=== PATIENT | female | born 1970 | race Caucasian/White ===

== ENCOUNTER → 2020-07-16 15:42 | Outpatient (CLI) | payer BC, SELFPAY ==
--- NOTE | ~2020-07-16 | MM_ITS ---
EXAMINATION: MM screening leyda BI w rasta HISTORY: Screening mammogram TECHNIQUE: Craniocaudal and mediolateral oblique 3-D tomosynthesis images were obtained and synthetic 2-D images were generated. CAD analysis was submitted and interpreted. COMPARISON: 01/13/2019 and 06/19/2018 diagnostic right digital mammogram 06/13/2018 bilateral digital screening mammogram BREAST PARENCHYMAL COMPOSITION: The breasts are heterogeneously dense, which may obscure small masses . FINDINGS: Minimal benign calcification of the breast. There is no evidence of suspicious mass, calcif ication, or architectural distortion to suggest malignancy in either breast. There has been no suspic ious interval change. IMPRESSION: 1. No mammographic evidence of malignancy. 2. Recommend routine screening mammography in one year. BI-RADS Category 2: Benign finding(s). Reviewed, dictated and finalized at location A.
== END ==
PROVIDERS: PCP Physician Assistant; Visit Provider Obstetrics & Gynecology
DX: Z12.31 Encounter for screening mammogram for malignant neoplasm of breast (principal)
CPT/HCPCS: 77063; 77067

== ENCOUNTER 2024-04-11 15:36 | Outpatient (CLI) | payer BC, SELFPAY ==
--- NOTE | 2024-04-11 | ECG_ITS ---
Test Date: 2024-04-11 16:16:10 Measurements Intervals [place] Rate: 76 P: 45 VT: 168 QRS: 43 QRSD: 78 T: 62 QT: 397 QTc: 447 Interpretive Statements SINUS RHYTHM RSR' IN V1 OR V2, PROBABLY NORMAL VARIANT LOW QRS VOLTAGE IN PRECORDIAL LEADS BORDERLINE ECG No previous ECG available for comparison Electronically Signed On 04-11-2024 17:34:08 CDT by Johnathan Garland D.O.
--- NOTE | ~2024-04-11 | XR_ITS ---
XR chest 2V 04/11/2024 16:12 Indication: History of breast cancer Procedure: 2 view chest Comparison: 06/30/2015 Findings: Heart size normal. Portacatheter tip in the SVC. No focal air space disease, pulmonary delores a, pleural effusion or suspected pneumothorax. Impression: 1: No acute cardiopulmonary disease. Reviewed, dictated and finalized at location B. Impression: 1: No acute cardiopulmonary disease.
== END 2024-04-11 15:37 | disposition home or self-care (01) ==
PROVIDERS: PCP Physician Assistant
DX: N65.0 Deformity of reconstructed breast (principal); Z85.3 Personal history of malignant neoplasm of breast; R94.31 Abnormal electrocardiogram [ECG] [EKG]
CPT/HCPCS: 71046; 93005

== ENCOUNTER 2024-07-25 00:22 | Day surgery (SDC) | payer BC, SELFPAY ==
[2024-07-17 14:59] VITALS: BMI 31.8
--- NOTE | 2024-07-17 15:11 | PC.NURSE ---
Report to the Outpatient Waiting Room, entrance under the green pavilion located off [facility], at time _0630 _ on date 07/25/24_. Planned Procedure Time: 0830_.? Time changes happen often and if your time is changed the preop area will call you the afternoon before. - You and your visitor will be asked to self-screen and do not enter if you have any COVID symptoms. Please call surgeon if you need to reschedule. - A mask is optional within the hospital at this time. Patients may have clear liquids (water, carbonated beverages, clear teas, apple juice) until 8 hours prior to surgery . - No food from midnight until time of surgery and no smoking - Infants may have breast milk until 4 hours before surgery, formula 6 hours prior to surgery. - Children will be allowed to drink immediately following surgery.? If applicable, please bring a bottle or sippy cup to assist with drinking. Juice, water, soda, and popsicles are readily available.? For infants on formula, please bring formula the day of surgery.? Pacifiers are allowed. Take only the following medications with a SIP of water on the morning of surgery: ___ALPRAZOLAM IF NEEDED DO NOT STOP ANY OF YOUR OTHER PRESCRIPTION MEDICATIONS PRIOR TO SURGERY EXCEPT THE FOLLOWING Medications to discontinue per physician VITAMINS AND SUPPLIMENTS Date to take last dose__07/22/24 Please no make-up, nail armenian, hairspray, perfume, deodorant, or body powder the day of surgery.? No jewelry (including any body piercings) or valuables the day of surgery, leave them at home.? Please take a shower or bath the night before, or the morning of, surgery with an antibacterial soap.? Wear comfortable, loose fitting clothing.? Children are encouraged to wear pajamas. - Jewelry must be removed prior to entering the operating room.? Rings and piercings that are not removed may be cut off. - The hospital will not accept responsibility for valuables.? - Please leave all valuables, including medications, at home the day of surgery. If you are going home after surgery, a licensed grab driver must drive you home.? - NO public transportation without another adult if you receive anesthesia. - We recommend that an adult stay with you for 24 hours following discharge. - We also recommend that you do not drive, make important decision, drink alcoholic beverages, or take any drugs that were not prescribed by your health care provider for at least 24 hours after your discharge time. For Pediatric surgeries, we recommend two adults accompany the child home. Follow any additional instructions given to you from your surgeon. Telephone instructions given to PATIENT__and asked if any additional questions and then verbalized understanding. Patient advised to call surgeon office or pre surgery nurse liaison [phone] if any additional questions.
[2024-07-25 06:35] VITALS: BP 112/81; PULSE 99; RESP 20; TEMP 36.1; O2SAT 100
--- NOTE | 2024-07-25 06:56 | P.HP_ITS ---
History of Present Illness History of Present Illness Chief complaint: trigger thumb left hand Narrative: Patient seen and examined in pre-operative holding area. No interval change in medical history or symptoms. Patient recalls previous discussion of benefits and alternatives to procedure. Continues to desire to proceed with left trigger thumb release. Reviewed procedure, post-op expectations and risks including but not limited to bleeding, infection, injury to tendon/nerve/vessel, decreased hand function, stiffness, RSD, no change or worsening of symptoms. I discussed the possible use of assistants and their participation in the case. Patient stated understanding and signed the consent form wishing to proceed. 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 Surgical History Surgical History H/O bilateral mastectomy (~01/2023) H/O breast biopsy (07/30/22) right breast / cancer invasive ductal carcinoma grade 2 History of dilation and curettage (07/20/18) hscope d&c--menometrorrhagia, dysmenorrhea, enlarged uterus--benign History of laparoscopic adjustable gastric banding (05/12/07) History of robot-assisted laparoscopic hysterectomy (09/28/18) RA TLH--symptomatic uterine fibroid Family History Family History Mother Family history of thyroid disease Hypertension Kidney disease Father Acute myocardial infarction Hypertension Grandparent Cerebrovascular accident maternal grandmother Malignant tumor of kidney maternal grandmother Other Breast cancer maternal aunts x2 Sibling Kidney disease brother Social History Social History (Updated 01/10/24 @ 09:14 by Batsheva Mendoza MA) Smoking packs per day: 1 Smoking cigarettes per day: 20.0 Years smoked: 20 Smoking pack-years: 20.00 Smoking status: Former smoker Second hand tobacco smoke exposure: Yes Smoking end date: 09/26/01 Additional smoking assessment comments: LAST USE JUN 2022 Alcohol intake: current Drinks per week: 5 Substance use: never Substance use type: marijuana Other substance usage details: EDIBLES AND MARAJUANA OINT. 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 Gender identity (if verbalized by the patient): Female Sexual Orientation (if Verbalized by the Patient): Straight or Heterosexual Meds Home Medications and Allergies Home Medications Medication Instructions Recorded Confirmed Type alprazolam 0.25 mg tablet 0.25 mg PO DAILY PRN Anxiety 09/29/22 07/25/24 History ergocalciferol (vitamin D2) 1,250 1,250 mcg PO WEEKLY 09/29/22 07/25/24 History mcg (50,000 unit) capsule biotin 2,500 mcg capsule 2,500 mcg PO DAILY 12/07/23 07/25/24 History coenzyme Q10 100 mg capsule 100 mg PO DAILY 12/07/23 07/25/24 History (CoQ-10) escitalopram oxalate 10 mg tablet 10 mg PO DAILY 12/07/23 07/25/24 History (Lexapro) krill 300 mg-omega-3 90 mg-dha 27 1 cap PO DAILY 12/07/23 07/25/24 History mg-epa 45 [id number]-vmpsiqq-zlcoswi capsule tamoxifen 20 mg tablet 20 mg PO DAILY 01/10/24 07/25/24 History Allergies Allergy/AdvReac Type Severity Reaction Status Date / Time Latex, Natural Rubber Allergy Intermediate hives Verified 07/25/24 07:00 pseudoephedrine Allergy Intermediate Palpitation Verified 07/25/24 07:00 s Exam Narrative: unchanged Assessment and Plan Assessment and plan (1) Trigger thumb, left thumb: Code(s): M65.312 - Trigger thumb, left thumb Status: Acute Assessment and Plan: cont as above
--- NOTE | 2024-07-25 06:57 | W.PM.PROC2 ---
Procedure Note - Detailed Date of Procedure 07/25/24 Pre-op Diagnosis trigger thumb left hand Post-op Diagnosis Same Procedure Performed left thumb a1 shania release Surgeon Flaca Ramirez MD Transportation Aide mayo dyre pa-c Anesthesia MAC Description of Procedure INFORMED CONSENT: The patient was seen and examined and marked in the pre-op area.? The patient signed the consent form. PROCEDURE IN DETAIL:The patient taken back to OR on the stretcher in supine position. Time out performed with anesthesia, surgeon and staff agreeing on patient's name site and surgery to be performed SCDs were placed on the lower extremities and inflated. A tourniquet was placed on {left} upper extremity and antibiotics given IV After anesthesia administered sedation I injected {4}cc 1%lido and 0.5% marcaine plain at the operative site The?{left upper extremity}?was prepped and draped in sterile fashion the??{left upper extremity} was? exsanguinated with Esmarch bandage and tourniquet inflated to 250mmHg With making an oblique incision proximal to the left thumb MP joint flexion crease through skin and dermis with a 15 blade scalpel. Littler scissors were used to spread through subcutaneous tissue down to the A1 shania. The A1 shania was identified initially incised with a 15 blade scalpel. Littler scissors were used to spread above and below it proximally and distally in completing the transection entirely. Ragnell retractor was used withdrawal the FPL tendon for inspection. It was free of masses and synovitis. It was gliding smoothly in the sheath without crepitus or triggering. I irrigated with normal saline closed with 4-0 chromic. A dressing of xeroform, 4x4, mello, and corinne was applied after the tourniquet was let down noting the hand was warm and well perfused. The patient was then awaken from anesthesia and transferred to the recovery room in stable condition.? Complications - none EBL- 0cc Disposition - home in stable conditions Mayo dyer pa-c was essential for positioning, retraction, closure and dressing placement [facility] Billing Surgery - Charge Forward: Surgery Billing ([id number] [id number] for mayo)
[2024-07-25] MEDS: LACTATED RINGERS 1,000 ML 30 ML IV CONT (07:00)
--- NOTE | 2024-07-25 08:05 | WPDANESEPPF ---
Anes - Initial Pre Proc Eval Procedure: Operation Date: 07/25/24 08:30 Proposed Procedures p Left Thumb Trigger Finger Release - Flaca Ramirez MD Date/Time: 07/25/24 08:05 Surgeon: Flaca Ramirez MD Pre Op Diagnosis: trigger thumb left hand Patient Data Age: 54 Gender: F Height: 1.63 m Weight: 86.6 kg Last Vital Signs Temp 36.1 C L 07/25/24 06:35 Pulse 99 07/25/24 06:35 Resp 20 07/25/24 06:35 BP 112/81 07/25/24 06:35 Pulse Ox 100 07/25/24 06:35 O2 Del Method Room Air 07/25/24 06:35 Allergies Allergy/AdvReac Type Severity Reaction Status Date / Time Latex, Natural Rubber Allergy Intermediate hives Verified 07/25/24 07:00 pseudoephedrine Allergy Intermediate Palpitation Verified 07/25/24 07:00 s Home Medications Medication Instructions Recorded Confirmed Type alprazolam 0.25 mg tablet 0.25 mg PO DAILY PRN Anxiety 09/29/22 07/25/24 History ergocalciferol (vitamin D2) 1,250 1,250 mcg PO WEEKLY 09/29/22 07/25/24 History mcg (50,000 unit) capsule biotin 2,500 mcg capsule 2,500 mcg PO DAILY 12/07/23 07/25/24 History coenzyme Q10 100 mg capsule 100 mg PO DAILY 12/07/23 07/25/24 History (CoQ-10) escitalopram oxalate 10 mg tablet 10 mg PO DAILY 12/07/23 07/25/24 History (Lexapro) krill 300 mg-omega-3 90 mg-dha 27 1 cap PO DAILY 12/07/23 07/25/24 History mg-epa 45 vh-iohfutx-kgdlana capsule tamoxifen 20 mg tablet 20 mg PO DAILY 01/10/24 07/25/24 History tramadol 50 mg tablet 50 mg PO Q6H PRN pain #12 tabs 07/25/24 Rx Patient hx anesthesia problems: none Family hx anesthesia problems: none Results Review: All pre-operative results and documents have been reviewed as part of the pre-operative evaluation. 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 Surgical History Surgical History H/O bilateral mastectomy (~01/2023) H/O breast biopsy (07/30/22) right breast / cancer invasive ductal carcinoma grade 2 History of dilation and curettage (07/20/18) hscope d&c--menometrorrhagia, dysmenorrhea, enlarged uterus--benign History of laparoscopic adjustable gastric banding (05/12/07) History of robot-assisted laparoscopic hysterectomy (09/28/18) RA TLH--symptomatic uterine fibroid Family History Family History Mother Family history of thyroid disease Hypertension Kidney disease Father Acute myocardial infarction Hypertension Grandparent Cerebrovascular accident maternal grandmother Malignant tumor of kidney maternal grandmother Other Breast cancer maternal aunts x2 Sibling Kidney disease brother Social History Social History (Updated 01/10/24 @ 09:14 by Batsheva Mendoza MA) Smoking packs per day: 1 Smoking cigarettes per day: 20.0 Years smoked: 20 Smoking pack-years: 20.00 Smoking status: Former smoker Second hand tobacco smoke exposure: Yes Smoking end date: 09/26/01 Additional smoking assessment comments: LAST USE JUN 2022 Alcohol intake: current Drinks per week: 5 Substance use: never Substance use type: marijuana Other substance usage details: EDIBLES AND MARAJUANA OINT. DURING CHEMO Do You Feel Safe in your Home?: Yes Lack of Transportation: No Lack of Food: Never True Current Housing: I Have Housing Concerned About Future Housing: No Difficulty Paying Gas/Electric Bills: No Difficulty Paying for Meds: No Currently Unemployed: No Education: Associate Degree Difficulty w/ Childcare or Family Care: No Living arrangements: with family Additional living arrangements comments: Occupation/Education: occupation Additional occupation/education comments: Waitress Gender identity (if verbalized by the patient): Female Sexual Orientation (if Verbalized by the Patient): Straight or Heterosexual Anes - Eval Final PreProcedure Day of Procedure 07/25/24 08:05 Patient weight: obese Heart: regular rate and rhythm Lungs: clear to auscultation Airway: Mallampati scale class II Neurological: alert and oriented Last oral intake: >/= 8 hours ASA classification: III Emergent: no Anesthetic plan: proceed Anesthesia type and monitoring: general GIVS and standard monitoring Results Review: All pre-operative results and documents have been reviewed as part of the pre-operative evaluation. Informed Consent: The patient's anesthetic plan and its attendant risks and benefits were discussed with the patient/family/POA. Questions were solicited and answers provided to the satisfaction of the patient/family/POA.
[2024-07-25] MEDS: ceFAZolin 2 GM/D5W 50 ML 2 GM/50 ML BAG IVPB (08:25)
[2024-07-25] MEDS: LIDO 2%/EPINEPHRINE 1:100,000 50 ML VIAL INFILTRATE (08:36)
[2024-07-25] MEDS: BUPivacaine HCL 0.5% PF 30 ML VIAL 5 ML INFILTRATE (08:38)
[2024-07-25 08:47] VITALS: BP 91/60; PULSE 93; RESP 14; O2SAT 100
[2024-07-25 09:15] VITALS: BP 94/67; PULSE 86; RESP 18; O2SAT 100
[2024-07-25 09:45] VITALS: BP 101/68; PULSE 87; RESP 20
[2024-07-25 10:15] VITALS: BP 115/77; PULSE 92; RESP 18
[2024-07-25 10:36] VITALS: BP 111/83; PULSE 97; RESP 20
== END 2024-07-25 10:38 | disposition home or self-care (01) ==
PROVIDERS: PCP Physician Assistant; Visit Provider Plastic Surgery
PROC: (CPT 26055; principal; 2024-07-25 08:30)
DX: M65.312 Trigger thumb, left thumb (principal); F41.9 Anxiety disorder, unspecified; F12.90 Cannabis use, unspecified, uncomplicated; E66.9 Obesity, unspecified; Z68.32 Body mass index [BMI] 32.0-32.9, adult; Z79.891 Long term (current) use of opiate analgesic; Z79.810 Long term (current) use of selective estrogen receptor modulators (SERMs); Z98.890 Other specified postprocedural states; Z98.84 Bariatric surgery status; Z85.3 Personal history of malignant neoplasm of breast; Z87.891 Personal history of nicotine dependence; Z92.21 Personal history of antineoplastic chemotherapy; Z80.51 Family history of malignant neoplasm of kidney; Z80.3 Family history of malignant neoplasm of breast; Z82.49 Family history of ischemic heart disease and other diseases of the circulatory system
CPT/HCPCS: 26055; A9270; J0690; J2004; J2250; J2704; J3010; J7120